=== PATIENT | male | born 1990 | race Caucasian/White ===

== ENCOUNTER 2020-06-27 23:01 | Emergency (ER) | payer OTHER ==
[2020-06-28] MEDS ORDERED: DOXYCYCLINE MO100 MG PO (00:30)
== END 2020-06-28 00:42 | disposition home or self-care (01) ==
LOC: FER 23:01
DX: L97.811 Non-pressure chronic ulcer of other part of right lower leg limited to breakdown of skin (principal); L03.115 Cellulitis of right lower limb; F17.210 Nicotine dependence, cigarettes, uncomplicated; Z88.5 Allergy status to narcotic agent
CPT/HCPCS: 99283

== ENCOUNTER 2020-11-13 17:08 | Emergency (ER) | payer OTHER ==
[~2020-11-13 17:08] MED LIST: DOXYCYCLINE MO100 MG PO
[2020-11-13] MEDS ORDERED: NARCAN4 MG (18:52)
== END 2020-11-13 19:30 | disposition home or self-care (01) ==
LOC: FER 17:08
DX: T40.2X1A Poisoning by other opioids, accidental (unintentional), initial encounter (principal); F17.210 Nicotine dependence, cigarettes, uncomplicated
CPT/HCPCS: 99284